=== PATIENT | male | born 1940 | race Caucasian/White ===

== ENCOUNTER → 2016-11-17 | Outpatient (CLI) | payer OTHER, MEDICARE | LOC: FIMAGING 12:01 | PROVIDERS: ATTEND Internal Medicine | DX: R22.42 Localized swelling, mass and lump, left lower limb (principal); W20.8XXA Other cause of strike by thrown, projected or falling object, initial encounter ==

== ENCOUNTER → 2017-01-30 | Outpatient (CLI) | payer OTHER, MEDICARE | LOC: BHFA 08:30 | PROVIDERS: ATTEND Internal Medicine Cardiovascular Disease | DX: R07.9 Chest pain, unspecified (principal); I25.10 Atherosclerotic heart disease of native coronary artery without angina pectoris | CPT/HCPCS: 78452; 93017; A9500; J2785 ==

== ENCOUNTER 2017-02-11 09:00 | Day surgery (SDC) | payer OTHER, MEDICARE ==
[2017-02-11] MEDS ORDERED: ASPIRIN EC 325 MG TAB PO ONE (09:05)
[2017-02-11] MEDS ORDERED: diphenhydrAMINE 25 MG CAP PO ONE (09:05)
[2017-02-11] MEDS ORDERED: FAMOTIDINE 20 MG TAB PO ONE (09:05)
[2017-02-11] MEDS ORDERED: DIAZEPAM 5 MG TAB PO ONE (09:05)
[2017-02-11] MEDS ORDERED: NS 1,000 ML IV ONE (09:05)
--- NOTE | 2017-02-11 09:23 | CPEKG ---
Heart Rate: 66 RR Interval: 909 P-R Interval: 184 QRSD Interval: 112 QT Interval: 424 QTC Interval: 445 P [place]: 35 QRS [place]: 61 T Wave [place]: 41 EKG Severity - ABNORMAL ECG - EKG Impression: SINUS RHYTHM EKG Impression: NONSPECIFIC INTRAVENTRICULAR CONDUCTION DELAY EKG Impression: INFERIOR INFARCT, OLD EKG Impression: LESS VENTRICULAR ECTOPY IN COMPARISON TO PRIOR (05-JUN-16) Electronically Signed By: Cayetano Urrutia 12-Feb-2017 09:41:53
[2017-02-11 09:35] LABS: % IMMATURE GRANULYOCYTES 0.1 % (0.0-1.1); ABSOLUTE IMMATURE GRANULOCYTES 0.01 10^3/uL (0.00-0.10); ADD DIFF? NO; ADD MORPH? NO; ADD SCAN? NO; ATYPICAL LYMPHOCYTE FLAG 0 (0-99); FRAGMENT RBC FLAG 0 (0-99); HEMATOCRIT 44.6 % (40.0-51.0); LEFT SHIFT FLG 0 (0-99); LIPEMIA HEMOLYSIS FLAG 80 (0-99); MEAN CELL HEMOGLOBIN 29.9 pg (27.9-34.1); MEAN CELL HEMOGLOBIN CONCENTR. 33.6 g/dL (32.4-36.7); MEAN CELL VOLUME 88.8 fL (81.5-99.8); MEAN PLATELET VOLUME 9.6 fL (8.7-11.7); PLATELET CLUMPS FLAG 0 (0-99); PLATELET COUNT 195 10^3/uL (150-400); RED BLOOD CELL COUNT 5.02 10^6/uL (4.40-6.38); RED CELL DISTRIBUTION WIDTH 13.3 % (11.5-15.2)
[2017-02-11 09:53] LABS: ANION GAP 10 mEq/L (8-16); CALCIUM 9.3 mg/dL (8.5-10.4); CARBON DIOXIDE 21 mEq/l (22-31); CHLORIDE 109 mEq/L (97-110); CHOLESTEROL 138 mg/dL (140-220); CHOLESTEROL/HDL RATIO 3.29 RATIO (1.00-4.97); CREATININE 0.9 mg/dL (0.7-1.3); GLOMERULAR FILTRATION RATE > 60; GLUCOSE 97 mg/dL (70-100); HIGH DENSITY LIPOPROTEIN 42 mg/dL (40-65); LDL/HDL RATIO 1.93 RATIO (1.00-3.64); LOW DENSITY LIPOPROTEIN 81 mg/dL (80-100); MAGNESIUM 2.1 mg/dL (1.6-2.3); NON-HIGH DENSITY LIPOPROTEIN 96 mg/dL (90-129); POTASSIUM 3.9 mEq/L (3.5-5.2); SODIUM 140 mEq/L (134-144); TRIGLYCERIDE 78 mg/dL (40-150); VERY LOW DENSITY LIPOPROTEINS 15 mg/dL (8-25)
[2017-02-11 10:03] LABS: INR 1.17 (0.83-1.16); PROTIME(PATIENT) 14.9 SEC (12.0-15.0)
[2017-02-11] MEDS ORDERED: IOPAMIDOL (ISOVUE-370) 150 ML BTL IV ONE ×2 (10:15→11:05)
[2017-02-11] MEDS ORDERED: LIDOCAINE 1% 300 MG/30 ML SDV ONE (10:15)
[2017-02-11] MEDS ORDERED: fentaNYL 100 MCG/2 ML INJ ONE (10:27)
[2017-02-11] MEDS ORDERED: MIDAZOLAM 2 MG/2 ML VIAL ONE (10:28)
--- NOTE | 2017-02-11 12:05 | CPIP ---
[f rep st] INVASIVE CARDIAC PROCEDURE DATE OF PROCEDURE: 02/11/2017 PROCEDURE: 1. Coronary angiography. 2. Left ventriculography. INDICATIONS: 1. Known coronary artery disease status post RCA stenting. 2. Dyspnea on exertion concerning for class II angina. 3. Abnormal nuclear stress test with a fixed inferior defect. 4. Patient on optimal medical therapy. ACCESS: Patient was prepped and draped in sterile fashion. 1% lidocaine was used to anesthetize th e right inguinal region. A 6-Swazi introducer sheath was placed selectively into the right common femoral artery via modified Seldinger technique. CORONARY ANGIOGRAPHY: A 6-Swazi JL4 was advanced to the left main coronary artery and images obtai evangelina. The left main coronary artery bifurcated into LAD and circumflex coronary arteries. The left main coronary artery appeared normal. The left anterior descending coronary artery had a single dis crete 40% stenosis in the proximal segment. In the midvessel, mild diffuse disease could be seen. There was no stenosis greater than 20%. The circumflex coronary artery is a large vessel but was no ndominant. Circumflex coronary artery gave rise to 1 prominent OM branch. The circumflex coronary artery had mild diffuse disease throughout. There was no stenosis greater than 20%. The first OM a rtery had a proximal 20% stenosis present. A 6-Swazi JR4 was advanced to the right coronary artery and images obtained. The right coronary artery was previously stented in the mid segment. The pre viously placed stent was widely patent with no evidence of in-stent restenosis. The remainder of th e vessel had mild diffuse disease throughout. There was no stenosis greater than 10%. LEFT VENTRICULOGRAPHY: A 6-Swazi pigtail catheter was advanced into the left ventricle and images obtained. Left ventricle is normal in size, had normal systolic function. Estimated ejection fract ion is 55%. COMPLICATIONS: None. CONCLUSIONS: 1. Patent RCA stent with no evidence of in-stent restenosis. 2. [id number] coronary artery disease without flow limitation. 3. Plan is for medical management. /[id number]/MODL
== END 2017-02-11 16:15 | disposition home or self-care (01) ==
LOC: FCATH 09:00
PROVIDERS: ATTEND Internal Medicine Cardiovascular Disease
DX: R06.00 Dyspnea, unspecified (principal); I25.10 Atherosclerotic heart disease of native coronary artery without angina pectoris; Z95.5 Presence of coronary angioplasty implant and graft
CPT/HCPCS: C1760; J1644; J2250; J3010; Q9967